=== PATIENT | female | born 1980 | race Caucasian/White ===

== ENCOUNTER 2016-10-20 05:52 | Emergency (ER) | payer MEDICAID ==
[~2016-10-20] VITALS: Ht 152.4 cm; Wt 73.5 kg
[~2016-10-20 05:52] MED LIST: ALBU8.5H3 INH; ALBU8.5H5 INH; AZIT250T94 PO; BACTDS PO; CYCL-319 PO; ERYT1OIN6 LEFT EYE; GENT30OI2 TOP; HYDR-3498 PO; IBUP-1542 PO; IBUP800T25 PO; ONDA4TAB35 PO; PRED20TA PO; [UNRECOGNIZED DRUG - OTHER]
[2016-10-20 05:55] VITALS: Ht 152.4 cm; Wt 73.5 kg
[2016-10-20] MEDS ORDERED: DEXAMETHASONE 10 MG/ML 1 ML INJ IM STA (06:48)
[2016-10-20] MEDS ORDERED: ALBUTEROL 0.5% (NEB) 2.5 MG/0.5 ML AMP INH STA ×2 (06:48→08:31)
[2016-10-20] MEDS ORDERED: IPRATROPIUM (NEB) 0.5 MG/2.5 ML AMP INH STA (06:50)
[2016-10-20 07:36] LABS: ADD UMIC YES; URINE BILIRUBIN (Dip) NEGATIVE (NEGATIVE); URINE BLOOD (Dip) 3+ (NEGATIVE); URINE COLOR LT. YELLOW (YELLOW); URINE GLUCOSE (Dip) NEGATIVE (NEGATIVE); URINE KETONES (Dip) NEGATIVE (NEGATIVE); URINE LEUKOCYTE ESTERASE (Dip) NEGATIVE (NEGATIVE); URINE NITRITE (Dip) NEGATIVE (NEGATIVE); URINE TOTAL PROTEIN (Dip) NEGATIVE (NEGATIVE); URINE UROBILINOGEN (Dip) 0.2 E.U./dL (0.1-1.0)
[2016-10-20 07:49] LABS: BACTERIA,URINE RARE
--- NOTE | 2016-10-20 08:00 | RADRPT ---
PROCEDURE: XR Chest. CLINICAL INDICATION: chest pain, asthma TECHNIQUE: Single frontal view of the chest was obtained COMPARISON: 06/13/2015 FINDINGS: The heart and mediastinum are within normal limits. The lungs are clear. There is no pleural effusion or pneumothorax. RPTAT: AA IMPRESSION: No acute disease. .Enrrique Campuzano MD, MD Date Time Electronically viewed and signed by .Enrrique Campuzano MD, on 10/20/2016 08:00 .S/
[2016-10-20] MEDS ORDERED: PRED20TA PO (10:15)
[2016-10-20] MEDS ORDERED: IBUP-1542 PO (10:15)
[2016-10-20] MEDS ORDERED: ALBU8.5H3 INH (10:15)
--- NOTE | 2016-10-20 10:44 | ERD ---
ER Documentation Chief Complaint Date/Time DATE: 10/20/16 TIME: 10:40 Chief Complaint Cough, wheezing, back pain HPI This is a 36-year-old female patient with a past medical history of asthma presents to the ED complaining of wheezing, cough and back pain started 2 days ago. States that she has a dry cough. Denies any fever, chills, pleuritic chest pain, chest pain, shortness of breath, abdominal pain, nausea, vomiting. Reports that she just started her menses 2 days ago. Denies any recent traveling. Denies any leg swelling. ROS All systems reviewed and are negative except as per history of present illness. Medications Home Meds Active Scripts Prednisone* (Prednisone*) 20 Mg Tab, 40 MG PO DAILY for 4 Days, TAB Prov:EDSON DAWSON PA-C 10/20/16 Albuterol Sulfate* (Proair HFA*) 8.5 Gm Hfa.aer.ad, 2 PUFF INH Q4, #1 INHALER Prov:EDSON DAWSON PA-C 10/20/16 Ibuprofen* (Motrin*) 600 Mg Tab, 600 MG PO Q6, #30 TAB Prov:EDSON DAWSON PA-C 10/20/16 Ibuprofen* (Motrin*) 600 Mg Tab, 600 MG PO Q6, #20 TAB Prov:JJ DICKEY PA-C 01/19/16 Ondansetron Hcl* (Zofran* ODT) 4 mg -ODT Tab.disper, 4 MG PO Q6 Y for NAUSEA AND /OR VOMITING, #10 TAB Prov:JJ DICKEY PA-C 01/19/16 Ibuprofen* (Motrin*) 600 Mg Tab, 600 MG PO Q6, #14 TAB Prov:PATRICIA LORA MD 10/24/15 Sulfamethoxazole-Trimethoprim* (Bactrim* DS) 800-160 Mg Tab, 1 TAB PO BID for 7 Days, TAB Prov:PATRICIA LORA MD 10/24/15 Gentamicin Sulfate* (Gentamicin Sulfate* Oint) 0.1% - 15 gm Oint, 1 APPLIC TOP QID for 7 Days, TUB Prov:PATRICIA LORA MD 10/24/15 Erythromycin (Erythromycin Opth) 3.5 Gm Oint..gm., 1 APPLIC LEFT EYE QID for 7 Days, EA Prov:ENCARNACION,JODY PA-C 10/17/15 Azithromycin* (Zithromax*) 250 Mg Tablet, 250 MG PO .StephanePACK DIRECTED, #6 TAB TAKE 500 MG (2 TABS) THE FIRST DAY THEN 250 MG (1 TAB) DAYS 2-5 Prov:GEREMIAS PEOPLES 10/05/15 Prednisone* (Prednisone*) 20 Mg Tab, 40 MG PO DAILY, #20 TAB take 40 mg for 3 days, then 30 mg for 3 days and 20 mg for 3 days. Prov:GEREMIAS PEOPLES 10/05/15 Cyclobenzaprine Hcl* (Cyclobenzaprine Hcl*) 10 Mg Tablet, 10 MG PO TID, #15 TAB Prov:NOEMÍ BARKER NP 09/07/15 Ibuprofen* (Motrin*) 800 Mg Tab, 800 MG PO Q6H Y for PAIN AND OR ELEVATED TEMP, #30 TAB Prov:NOEMÍ BARKER NP 09/07/15 Albuterol Sulfate* (Proair HFA*) 8.5 Gm Hfa.aer.ad, 2 PUFF INH Q4, #1 INHALER Prov:DARYL ROUSE PA-C 08/12/15 Prednisone* (Prednisone*) 20 Mg Tab, 40 MG PO DAILY for 4 Days, TAB Prov:DARYL ROUSE PA-C 08/12/15 Prednisone* (Prednisone*) 20 Mg Tab, 40 MG PO DAILY for 4 Days, TAB Prov:DARYL ROUSE PA-C 06/13/15 Albuterol Sulfate* (Albuterol Sulfate* HFA) 8.5 Gm Hfa.aer.ad, 1-2 PUFF INH Q4 Y for SHORTNESS OF BREATH, #1 EA Prov:DARYL ROUSE PA-C 06/13/15 Hydrocodone Bit-Acetaminophen* ([place]*) 5-325 Mg Tab, 1 TAB PO Q6 Y for PAIN, # 20 TAB Prov:JOSE J SLOAN NP 02/14/15 Reported Medications [Albuterol Ran Out] No Conflict Check 12/19/10 Allergies Allergies: Coded Allergies: No Known Drug Allergies (Verified Allergy, Mild, 06/13/15) PMhx/Soc Medical and Surgical Hx: pt denies Medical Hx History of Surgery: Yes (Ovarian Cyst) Anesthesia Reaction: No Hx Neurological Disorder: No Hx Respiratory Disorders: Yes (ASTHMA) Hx Cardiac Disorders: No Hx Psychiatric Problems: No Hx Miscellaneous Medical Probl: No Hx Alcohol Use: No Hx Substance Use: No Hx Tobacco Use: No Physical Exam Vitals Vital Signs Date Time Temp Pulse Resp B/P Pulse Ox O2 Delivery O2 Flow Rate FiO2 10/20/16 08:56 82 22 100 21 10/20/16 07:24 69 20 100 40 10/20/16 07:08 72 24 97 21 Physical Exam Const: [id number], well-nourished. In no acute distress. Head: Atraumatic, normocephalic Eyes: Normal Conjunctiva without injection. No purulent discharge. PERRL. EOMI ENT: Normal external ear. Ear canal without erythema. Tympanic membrane pearly anthony without effusion or bulging. Nasal canal clear with normal turbinates. Moist oropharynx without tonsillar exudates. Non-erythematous pharynx. Uvula midline. No drooling. No trismus. Neck: Full range of motion. No meningismus. No cervical lymphadenopathy. Resp: Clear to auscultation bilaterally. No wheezing, rhonchi, rales, or crackles. No accessory muscle use. No retractions. Cardio: Regular rate and rhythm. No murmurs, rubs or gallops. Abd: Soft, non tender, non distended. Normal bowel sounds. No palpable masses. No rebound tenderness. No guarding. Skin: No petechiae or rashes Back: No midline tenderness. No CVA tenderness. Ext: No cyanosis, or edema. Neur: Awake and alert. Psych: Normal Mood and Affect Results 24 hrs Laboratory Tests Test 10/20/16 07:00 Urine Color LT. YELLOW Urine Clarity CLEAR Urine pH 7.0 Urine Specific [place] 1.010 Urine Ketones NEGATIVE Urine Nitrite NEGATIVE Urine Bilirubin NEGATIVE Urine Urobilinogen 0.2 E.U./dL Urine Leukocyte Esterase NEGATIVE Urine Microscopic RBC 2-5/HPF Urine Microscopic WBC 0-2/HPF Urine Epithelial Cells FEW Urine Bacteria RARE Urine Hemoglobin 3+ Urine Glucose NEGATIVE% Urine Total Protein NEGATIVE Current Medications Medications (Trade) Dose Ordered Sig/Rona Route PRN Reason Start Time Stop Time Status Last Admin Dose Admin Albuterol (Proventil 0.5% (Neb)) 5 mg ONCE STAT INH 10/20/16 06:48 10/20/16 06:50 DC 10/20/16 07:07 Dexamethasone (Decadron) 10 mg ONCE STAT IM 10/20/16 06:48 10/20/16 06:50 DC 10/20/16 07:00 Ipratropium [place] (Atrovent 0.02% (Neb)) 1 mg ONCE STAT INH 10/20/16 06:50 10/20/16 06:51 DC 10/20/16 07:08 Albuterol (Proventil 0.5% (Neb)) 10 mg ONCE STAT INH 10/20/16 08:31 10/20/16 08:32 DC 10/20/16 08:55 Procedures/MDM This is a 36-year-old female patient with no significant past medical history presents the ED complaining of back pain, cough, wheezing that started 2 days ago. Patient is afebrile and nontoxic-appearing. Patient has normal vital signs. Patient's oxygen saturation is 97%. Patient is speaking in full sentences. Patient is not in respiratory distress. Chest x-ray was ordered to further evaluate patient. PROCEDURE: XR Chest. CLINICAL INDICATION: chest pain, asthma TECHNIQUE: Single frontal view of the chest was obtained COMPARISON: 06/13/2015 FINDINGS: The heart and mediastinum are within normal limits. The lungs are clear. There is no pleural effusion or pneumothorax. RPTAT: AA IMPRESSION: No acute disease. Patient likely has an asthma exacerbation. Low suspicion for atypical SD, pneumonia, pulmonary embolism, pneumothorax, cardiac tamponade, sinusitis, peritonsillar abscess, mastoiditis, Alon's angina, retropharyngeal abscess, meningitis, sepsis or other emergent conditions. Patient's respiratory status has stabilized while in the department and is appropriate for outpatient work up. Exam and work up not consistent w/ impending respiratory failure or cardiovascular collapse. Discharge medications: Ibuprofen, Proair, Prednisone Follow up with primary care physician in 1-2 days. Instructed patient to return to the ED sooner for any worsening symptoms. Patient's questions were answered. Patient understood and agreed with discharge plan. Patient discharged stable. Departure Diagnosis: Primary Impression: Cough Additional Impressions: Back pain Back pain location: back pain in unspecified location Chronicity: unspecified Back pain laterality: left Qualified Code: M54.9 - Left-sided back pain, unspecified back location, unspecified chronicity Wheezing Condition: Stable Patient Instructions: Relieving Back Pain, Asthma, Acute (Adult), Back Pain ( Acute Or Chronic) Referrals: [facility] YOU HAVE RECEIVED A MEDICAL SCREENING EXAM AND THE RESULTS INDICATE THAT YOU DO NOT HAVE A CONDITION THAT REQUIRES URGENT TREATMENT IN THE EMERGENCY DEPARTMENT. FURTHER EVALUATION AND TREATMENT OF YOUR CONDITION CAN WAIT UNTIL YOU ARE SEEN IN YOUR DOCTORS OFFICE WITHIN THE NEXT 1-2 DAYS. IT IS YOUR RESPONSIBILITY TO MAKE AN APPOINTMENT FOR FOLOW-UP CARE. IF YOU HAVE A PRIMARY DOCTOR --you should call your primary doctor and schedule an appointment IF YOU DO NOT HAVE A PRIMARY DOCTOR YOU CAN CALL OUR PHYSICIAN REFERRAL HOTLINE AT IF YOU CAN NOT AFFORD TO SEE A PHYSICIAN YOU CAN CHOSE FROM THE FOLLOWING [facility] [address] [facility] [address] [facility] [facility] [facility] [address] [facility] [address] [facility] [address] [facility]. [facility]. [address] [facility]. [facility] YOU HAVE RECEIVED A MEDICAL SCREENING EXAM AND THE RESULTS INDICATE THAT YOU DO NOT HAVE A CONDITION THAT REQUIRES URGENT TREATMENT IN THE EMERGENCY DEPARTMENT. FURTHER EVALUATION AND TREATMENT OF YOUR CONDITION CAN WAIT UNTIL YOU ARE SEEN IN YOUR DOCTORS OFFICE WITHIN THE NEXT 1-2 DAYS. IT IS YOUR RESPONSIBILITY TO MAKE AN APPOINTMENT FOR FOLOW-UP CARE. IF YOU HAVE A PRIMARY DOCTOR --you should call your primary doctor and schedule and appointment IF YOU DO NOT HAVE A PRIMARY DOCTOR YOU CAN CALL OUR PHYSICIAN REFERRAL HOTLINE AT . IF YOU CAN NOT AFFORD TO SEE A PHYSICIAN YOU CAN CHOSE FROM THE FOLLOWING [facility] INSTITUTIONS: [facility] [address] [place] [address] [facility] [address] [place] [address] [facility] [address] [address] [facility] URGENT CARE/SPECIALTIES Additional Instructions: Call your primary care doctor TOMORROW for an appointment during the next 2-3 days.See the doctor sooner or return here if your condition worsens before your appointment time. EDSON DAWSON PA-C Oct 20, 2016 10:44 EDSON DAWSON PA-C Oct 20, 2016 10:44
== END 2016-10-20 10:29 | disposition home or self-care (01) ==
LOC: FTE 05:52 → E/R 10:29
DX: R05 Cough (principal); M54.9 Dorsalgia, unspecified; J45.901 Unspecified asthma with (acute) exacerbation
CPT/HCPCS: 71010; 81001; 94640; 94664; 96372; J1100; Z7502; Z7610; 81003

== ENCOUNTER 2017-02-24 11:37 | Emergency (ER) | payer MEDICAID ==
[~2017-02-24] VITALS: Ht 152.4 cm; Wt 71.5 kg
[2017-02-24 11:40] VITALS: Ht 152.4 cm; Wt 71.5 kg
[2017-02-24] MEDS ORDERED: traMADol 50 MG TAB PO ONE (12:00)
--- NOTE | 2017-02-24 12:03 | ERD ---
ER Documentation Chief Complaint Date/Time DATE: 02/24/17 TIME: 12:01 Chief Complaint right thumb swollen and painful after shutting it in car door friday HPI 36-year-old female who is right-hand dominant comes in with a crush injury to the right thumb after hitting a car door onto a 2 days ago. She describes ecchymosis, painf with moving, worsening today. She has been trying to take ibuprofen for the pain. She denies any fevers or chills. ROS All systems reviewed and are negative except as per history of present illness. Medications Home Meds Active Scripts Tramadol HCl (Tramadol HCl) 50 Mg Tablet, 50 MG PO Q4 Y for PAIN, #15 TAB Prov:JJ DICKEY PA-C 02/24/17 Bacitracin* (Bacitracin Zinc Oint*) 28.35 Gm Oint, 1 APPLIC TOP BID, #1 TUB APPLI TO Prov:JJ DICKEY PA-C 02/24/17 Prednisone* (Prednisone*) 20 Mg Tab, 40 MG PO DAILY for 4 Days, TAB Prov:EDSON DAWSON PA-C 10/20/16 Albuterol Sulfate* (Proair HFA*) 8.5 Gm Hfa.aer.ad, 2 PUFF INH Q4, #1 INHALER Prov:EDSON DAWSON PA-C 10/20/16 Ibuprofen* (Motrin*) 600 Mg Tab, 600 MG PO Q6, #30 TAB Prov:EDSON DAWSON PA-C 10/20/16 Ibuprofen* (Motrin*) 600 Mg Tab, 600 MG PO Q6, #20 TAB Prov:JJ DICKEY PA-C 01/19/16 Ondansetron Hcl* (Zofran* ODT) 4 mg -ODT Tab.disper, 4 MG PO Q6 Y for NAUSEA AND /OR VOMITING, #10 TAB Prov:JJ DICKEY PA-C 01/19/16 Ibuprofen* (Motrin*) 600 Mg Tab, 600 MG PO Q6, #14 TAB Prov:PATRICIA LORA MD 10/24/15 Sulfamethoxazole-Trimethoprim* (Bactrim* DS) 800-160 Mg Tab, 1 TAB PO BID for 7 Days, TAB Prov:PATRICIA LORA MD 10/24/15 Gentamicin Sulfate* (Gentamicin Sulfate* Oint) 0.1% - 15 gm Oint, 1 APPLIC TOP QID for 7 Days, TUB Prov:PATRICIA LORA MD 10/24/15 Erythromycin (Erythromycin Opth) 3.5 Gm Oint..gm., 1 APPLIC LEFT EYE QID for 7 Days, EA Prov:JODY ENCARNACION PA-C 10/17/15 Azithromycin* (Zithromax*) 250 Mg Tablet, 250 MG PO .StephanePACK DIRECTED, #6 TAB TAKE 500 MG (2 TABS) THE FIRST DAY THEN 250 MG (1 TAB) DAYS 2-5 Prov:RICHELLEGEREMIAS DO 10/05/15 Prednisone* (Prednisone*) 20 Mg Tab, 40 MG PO DAILY, #20 TAB take 40 mg for 3 days, then 30 mg for 3 days and 20 mg for 3 days. Prov:RICHELLE,GEREMIAS 10/05/15 Cyclobenzaprine Hcl* (Cyclobenzaprine Hcl*) 10 Mg Tablet, 10 MG PO TID, #15 TAB Prov:NOEMÍ BARKER NP 09/07/15 Ibuprofen* (Motrin*) 800 Mg Tab, 800 MG PO Q6H Y for PAIN AND OR ELEVATED TEMP, #30 TAB Prov:NOEMÍ BARKER [employer] 09/07/15 Albuterol Sulfate* (Proair HFA*) 8.5 Gm Hfa.aer.ad, 2 PUFF INH Q4, #1 INHALER Prov:DARYL ROUSE PA-C 08/12/15 Prednisone* (Prednisone*) 20 Mg Tab, 40 MG PO DAILY for 4 Days, TAB Prov:DARYL ROUSE PA-C 08/12/15 Prednisone* (Prednisone*) 20 Mg Tab, 40 MG PO DAILY for 4 Days, TAB Prov:DARYL ROUSE PA-C 06/13/15 Albuterol Sulfate* (Albuterol Sulfate* HFA) 8.5 Gm Hfa.aer.ad, 1-2 PUFF INH Q4 Y for SHORTNESS OF BREATH, #1 EA Prov:DARYL ROUSE PA-C 06/13/15 Hydrocodone Bit-Acetaminophen* ([place]*) 5-325 Mg Tab, 1 TAB PO Q6 Y for PAIN, # 20 TAB Prov:JOSE J SLOAN GREENSiomara Hansen EMMY 02/14/15 Reported Medications [Albuterol Ran Out] No Conflict Check 12/19/10 Allergies Allergies: Coded Allergies: No Known Drug Allergies (Verified Allergy, Mild, 06/13/15) PMhx/Soc History of Surgery: Yes (Ovarian Cyst) Anesthesia Reaction: No Hx Neurological Disorder: No Hx Respiratory Disorders: Yes (ASTHMA) Hx Cardiac Disorders: No Hx Psychiatric Problems: No Hx Miscellaneous Medical Probl: No Hx Alcohol Use: No Hx Substance Use: No Hx Tobacco Use: No Physical Exam Vitals Vital Signs Date Time Temp Pulse Resp B/P Pulse Ox O2 Delivery O2 Flow Rate FiO2 02/24/17 11:40 99.0 85 18 148/96 99 Physical Exam General: Well-developed, well-nourished. The patient appears in no acute distress. HEENT: Head is normocephalic, atraumatic. No scleral icterus. Neck: Supple. Nontender. Lungs: Clear to auscultation. Normal air movement. Heart: Regular rate and rhythm. S1 and S2 are normal. No murmurs, gallops, or rubs. Abdomen: Nondistended. Extremities: Subungual hematoma approximately 80% of the nail right thumb. Soft tissue swelling appreciated. She is able to flex and extend at the IP joint, capillary refill less than 2 seconds. There is no snuffbox tenderness. neurologic: Alert and oriented 3. No focal deficits. Normal speech and gait. Skin: Normal turgor. No rash or lesions. Results 24 hrs Current Medications Medications (Trade) Dose Ordered Sig/Rona Route PRN Reason Start Time Stop Time Status Last Admin Dose Admin Tramadol HCl (Ultram) 50 mg ONCE ONCE PO 02/24/17 12:00 02/24/17 12:01 DC 02/24/17 12:15 Lidocaine (Xylocaine 1% (Mdv) 20 ml) 20 ml ONCE ONCE SC 02/24/17 14:00 02/24/17 14:01 DC DIAGNOSTIC IMAGING REPORT Patient: JOSUE CARTER : 1980 Age: 36 Sex: F MR #: [id number] DOS: 02/24/17 1156 Ordering MD: JJ DICKEY PA-C Location: [facility] Room/Bed: PROCEDURE: XR Thumb. CLINICAL INDICATION: Right thumb pain TECHNIQUE: 3 views of the right thumb are available for review. COMPARISON: None available FINDINGS: The osseous structures, articular spaces, and surrounding soft tissues of the right thumb are normal. No acute fracture or dislocation is seen. No radiopaque foreign body is identified. IMPRESSION: 1. Unremarkable right thumb x-ray series. RPTAT: HMJB .Alejandro Barrera MD, MD Date Time Electronically viewed and signed by .Alejandro Barrera MD, MD on 02/24/2017 13:43 .B/ CC: JJ DICKEY PA-C Procedures/MDM ED COURSE: Patient was given tramadol for pain. X-rays obtained of the right thumb. Subungual hematoma drainage, patient was verbally consented. Finger was prepped with Betadine, cautery was used to trephinate the finger at the proximal aspect of the finger. Patient states that she is in a lot of pain , therefore although there was a small amount of blood I was able to be drained , I then did a digital block lidocaine 1% without epinephrine, approximately 6 cc of lidocaine. Good local anesthetic effect achieved. An 19-gauge needle was introduced to the same area of the trephination, and there was a large amount of blood that was able to be drained. Patient was neurovascular intact post procedure. Bacitracin was applied as well as a clean dressing. MEDICAL DECISION MAKIN36 year old female comes in with a subungual hematoma, crush injury to the right thumb, Without underlying fracture. Subungual hematoma was drained, there was a large amount of blood was able to drain and she was neurovascular intact. There are no signs of infection, fracture, she is able for discharge. Departure Diagnosis: Primary Impression: Subungual hematoma Condition: JJ Dubose PA-C Feb 24, 2017 12:03
[2017-02-24] MEDS ORDERED: BACI28.34 TOP (13:39)
[2017-02-24] MEDS ORDERED: TRAM50TA2 PO (13:39)
--- NOTE | 2017-02-24 13:44 | RADRPT ---
PROCEDURE: XR Thumb. CLINICAL INDICATION: Right thumb pain TECHNIQUE: 3 views of the right thumb are available for review. COMPARISON: None available FINDINGS: The osseous structures, articular spaces, and surrounding soft tissues of the right thumb are normal . No acute fracture or dislocation is seen. No radiopaque foreign body is identified. IMPRESSION: 1. Unremarkable right thumb x-ray series. RPTAT: HMJB .Alejandro Barrera MD, MD Date Time Electronically viewed and signed by .Alejandro Barrera MD, on 02/24/2017 13:43 .B/
[2017-02-24] MEDS ORDERED: LIDOCAINE 1% (MDV) 20 ML INJ SC ONE (14:00)
[2017-02-24 14:32] VITALS: BP 142/92; PULSE 74; RESP 17; TEMP 98.9
== END 2017-02-24 14:33 | disposition home or self-care (01) ==
LOC: FTE 11:37
DX: S60.111A Contusion of right thumb with damage to nail, initial encounter (principal); J45.909 Unspecified asthma, uncomplicated; W23.0XXA Caught, crushed, jammed, or pinched between moving objects, initial encounter; Y92.9 Unspecified place or not applicable
CPT/HCPCS: 11740; 73140; Z7502; Z7610

== ENCOUNTER 2017-04-29 12:21 | Emergency (ER) | payer MEDICAID ==
[~2017-04-29] VITALS: Ht 152.4 cm; Wt 70.7 kg
[~2017-04-29 12:21] MED LIST changes: +BACI28.34 TOP; +TRAM50TA2 PO
[2017-04-29 13:07] VITALS: Ht 152.4 cm; Wt 70.7 kg
--- NOTE | 2017-04-29 13:41 | RADRPT ---
PROCEDURE: OBSTETRICAL ULTRASOUND WITH ENDOVAGINAL IMAGES CLINICAL INDICATION: , vaginal bleeding TECHNIQUE: Multiple sonographic images of the pelvis were obtained utilizing a transabdominal and endovaginal technique. The images were reviewed on a PACS workstation. COMPARISON: None. LMP: 12/24/2016 FINDINGS: There is a 1.9 cm anterior submucosal uterine fibroid at the level of the upper body with mild poste rior displacement of the endometrium. There is a single live intrauterine with heart rate of 144 beats per minute, mean sa c diameter of 2.30 cm, yolk sac, and crown-rump length of 0.61 cm which is consistent with a gestati onal age of 6 weeks, 6 days . The estimated date of delivery by ultrasound is 12/17/2017 . The estimated gestational age by LMP is 18 weeks, 0 days . The estimated date of delivery by LMP is 09/30/2017 . The right ovary is not visualized. The left ovary measures 4.0 x 1.6 x 2.9 cm. There is normal vascu lar flow in the left ovary. No significant ovarian lesions are seen. No significant pelvic free fluid is identified. IMPRESSION: Single live intrauterine consistent with a gestational age of 6 weeks, 6 days . The estimated date of delivery is 12/17/2017 . Dating by ultrasound is not consistent with dating by LMP, as above. 1.9 cm anterior submucosal fibroid at the level of the upper body with mild posterior displacement o f the endometrium. No subchorionic hemorrhage is identified. Nonvisualization of the right ovary. RPTAT: EE Physician Carol Date Time Electronically viewed and signed by Physician Carol on 04/29/2017 13:40 /
--- NOTE | 2017-04-29 14:35 | ERD ---
ER Documentation Chief Complaint Chief Complaint 7 weeks ; 4 days with vagbleed, pelvic and back pain x 2 days HPI This is a 36-year-old female this 36-year-old female here for vaginal bleeding. The patient has some spotting brown and light pink discharge for the past 4 days. No clots but she is having some mild cramping off and on. This is the patient's third . Patient states she is about 7 weeks . No back pain no dysuria fever vomiting or diarrhea ROS All systems reviewed and are negative except as per history of present illness. Medications Home Meds Active Scripts Tramadol HCl (Tramadol HCl) 50 Mg Tablet, 50 MG PO Q4 Y for PAIN, #15 TAB Prov:JJ DICKEY PA-C 02/24/17 Bacitracin* (Bacitracin Zinc Oint*) 28.35 Gm Oint, 1 APPLIC TOP BID, #1 TUB APPLI TO Prov:JJ DICKEY PA-C 02/24/17 Prednisone* (Prednisone*) 20 Mg Tab, 40 MG PO DAILY for 4 Days, TAB Prov:EDSON DAWSON PA-C 10/20/16 Albuterol Sulfate* (Proair HFA*) 8.5 Gm Hfa.aer.ad, 2 PUFF INH Q4, #1 INHALER Prov:EDSON DAWSON PA-C 10/20/16 Ibuprofen* (Motrin*) 600 Mg Tab, 600 MG PO Q6, #30 TAB Prov:EDSON DAWSON PA-C 10/20/16 Ibuprofen* (Motrin*) 600 Mg Tab, 600 MG PO Q6, #20 TAB Prov:JJ DICKEY PA-C 01/19/16 Ondansetron Hcl* (Zofran* ODT) 4 mg -ODT Tab.disper, 4 MG PO Q6 Y for NAUSEA AND /OR VOMITING, #10 TAB Prov:JJ DICKEY PA-C 01/19/16 Ibuprofen* (Motrin*) 600 Mg Tab, 600 MG PO Q6, #14 TAB Prov:PATRICIA LORA MD 10/24/15 Sulfamethoxazole-Trimethoprim* (Bactrim* DS) 800-160 Mg Tab, 1 TAB PO BID for 7 Days, TAB Prov:PATRICIA LORA MD 10/24/15 Gentamicin Sulfate* (Gentamicin Sulfate* Oint) 0.1% - 15 gm Oint, 1 APPLIC TOP QID for 7 Days, TUB Prov:PATRICIA LORA MD 10/24/15 Erythromycin (Erythromycin Opth) 3.5 Gm Oint..gm., 1 APPLIC LEFT EYE QID for 7 Days, EA Prov:JODY ENCARNACION PA-C 10/17/15 Azithromycin* (Zithromax*) 250 Mg Tablet, 250 MG PO .StephanePACK DIRECTED, #6 TAB TAKE 500 MG (2 TABS) THE FIRST DAY THEN 250 MG (1 TAB) DAYS 2-5 Prov:GEREMIAS PEOPLES DO 10/05/15 Prednisone* (Prednisone*) 20 Mg Tab, 40 MG PO DAILY, #20 TAB take 40 mg for 3 days, then 30 mg for 3 days and 20 mg for 3 days. Prov:RICHELLE,GEREMIAS DO 10/05/15 Cyclobenzaprine Hcl* (Cyclobenzaprine Hcl*) 10 Mg Tablet, 10 MG PO TID, #15 TAB Prov:NOEMÍ BARKER NP 09/07/15 Ibuprofen* (Motrin*) 800 Mg Tab, 800 MG PO Q6H Y for PAIN AND OR ELEVATED TEMP, #30 TAB Prov:NOEMÍ BARKER MANAGER [employer]ICENSING 09/07/15 Albuterol Sulfate* (Proair HFA*) 8.5 Gm Hfa.aer.ad, 2 PUFF INH Q4, #1 INHALER Prov:DARYL ROUSE PA-C 08/12/15 Prednisone* (Prednisone*) 20 Mg Tab, 40 MG PO DAILY for 4 Days, TAB Prov:DARYL ROUSE PA-C 08/12/15 Prednisone* (Prednisone*) 20 Mg Tab, 40 MG PO DAILY for 4 Days, TAB Prov:DARYL ROUSE PA-C 06/13/15 Albuterol Sulfate* (Albuterol Sulfate* HFA) 8.5 Gm Hfa.aer.ad, 1-2 PUFF INH Q4 Y for SHORTNESS OF BREATH, #1 EA Prov:DARYL ROUSE PA-C 06/13/15 Hydrocodone Bit-Acetaminophen* ([place]*) 5-325 Mg Tab, 1 TAB PO Q6 Y for PAIN, # 20 TAB Prov:JOSE J SLOAN GREEN TShen BOOTH 02/14/15 Reported Medications [Albuterol Ran Out] No Conflict Check 12/19/10 Allergies Allergies: Coded Allergies: No Known Drug Allergies (Verified Allergy, Mild, 06/13/15) PMhx/Soc History of Surgery: Yes (Ovarian Cyst) Anesthesia Reaction: No Hx Neurological Disorder: No Hx Respiratory Disorders: Yes (ASTHMA) Hx Cardiac Disorders: No Hx Psychiatric Problems: No Hx Miscellaneous Medical Probl: No Hx Alcohol Use: No Hx Substance Use: No Hx Tobacco Use: No Smoking Status: Never smoker FmHx Family History: No coronary disease Physical Exam Vitals Vital Signs Date Time Temp Pulse Resp B/P Pulse Ox O2 Delivery O2 Flow Rate FiO2 04/29/17 13:07 98.7 71 18 130/69 100 Physical Exam Const: Well-developed, well-nourished Head: Atraumatic, normocephalic Eyes: Normal Conjunctiva, PERRLA, EOMI, normal sclera, no nystagmus ENT: Normal External Ears, Nose and Mouth, moist mucus membranes. Neck: Full range of motion. No meningismus, no lymphadenopathy. Resp: Clear to auscultation bilaterally, no wheezing, rhonchi, rales Cardio: Regular rate and rhythm, no murmurs, S1 S2 present Abd: Soft, mild pelvic non distended. Normal bowel sounds, no guarding or rebound, no pulsitile abdominal masses or bruits Skin: No petechiae or rashes, no ecchymosis , no maculopapular rash Back: No midline or flank tenderness Ext: No cyanosis, or edema, FROM x 4, normal inspection, neurovascularly intact x 4 Neur: Awake and alert, STR 5/5 x 4, sensation intact x 4, no focal findings, cerebellum intact Psych: Normal Mood and Affect Procedures/MDM PROCEDURE: OBSTETRICAL ULTRASOUND WITH ENDOVAGINAL IMAGES CLINICAL INDICATION: , vaginal bleeding TECHNIQUE: Multiple sonographic images of the pelvis were obtained utilizing a transabdominal and endovaginal technique. The images were reviewed on a PACS workstation. COMPARISON: None. LMP: 12/24/2016 FINDINGS: There is a 1.9 cm anterior submucosal uterine fibroid at the level of the upper body with mild posterior displacement of the endometrium. There is a single live intrauterine with heart rate of 144 beats per minute, mean sac diameter of 2.30 cm, yolk sac, and crown-rump length of 0.61 cm which is consistent with a gestational age of 6 weeks, 6 days . The estimated date of delivery by ultrasound is 12/17/2017 . The estimated gestational age by LMP is 18 weeks, 0 days . The estimated date of delivery by LMP is 09/30/2017 . The right ovary is not visualized. The left ovary measures 4.0 x 1.6 x 2.9 cm. There is normal vascular flow in the left ovary. No significant ovarian lesions are seen. No significant pelvic free fluid is identified. IMPRESSION: Single live intrauterine consistent with a gestational age of 6 weeks , 6 days . The estimated date of delivery is 12/17/2017 . Dating by ultrasound is not consistent with dating by LMP, as above. 1.9 cm anterior submucosal fibroid at the level of the upper body with mild posterior displacement of the endometrium. No subchorionic hemorrhage is identified. Nonvisualization of the right ovary. RPTAT: EE Physician Carol Date Time Electronically viewed and signed by Guy Guadarrama Physician on 04/29/2017 13:40 RA/ CC: EDMUNDO CRUM DO Patient is a viable . We will give her [place] precautions for the next couple of days. Signs to return Departure Diagnosis: Primary Impression: Threatened Condition: Stable Patient Instructions: Possible Miscarriage (Threatened ) EDMUNDO CRUM DO Apr 29, 2017 14:35
== END 2017-04-29 14:58 | disposition home or self-care (01) ==
LOC: FTE 12:21
DX: O20.0 Threatened abortion (principal); O99.511 Diseases of the respiratory system complicating pregnancy, first trimester; J45.909 Unspecified asthma, uncomplicated; Z3A.01 Less than 8 weeks gestation of pregnancy
CPT/HCPCS: 76801; 84702; 86850; 86900; 86901; Z7502

== ENCOUNTER 2017-07-15 23:30 | Emergency (ER) | END 2017-07-16 03:57 | disposition left against medical advice (07) ==

== ENCOUNTER 2018-01-05 21:50 | Emergency (ER) | END 2018-01-06 03:09 | disposition home or self-care (01) ==